=== PATIENT | female | born 1935 | race Caucasian/White ===

== ENCOUNTER 2019-12-19 19:25 | Inpatient (IN) | payer MEDICARE ==
[~2019-12-19] VITALS: Ht 175.3 cm; Wt 57.4 kg
[~2019-12-19 19:25] MED LIST: AMLODIPINE BESYL5 MG PO; ASPIRIN81 M2 PO; CALCIUM600 M1; PENTOXIFYLLINE400 MG PO; Z.0.MULTIVITAMINS1 E; Z.0.PLAVIX75 MG PO; Z.0.XALATAN2.5 ML OP; Z.6.FISH OIL 1,0001 PO; [UNRECOGNIZED DRUG - OTHER] IH
--- OUTSIDE RECORDS SUMMARY | 2019-12-19 19:29 | XMS REPORT ---
Author Author [facility] Organization [facility] Address [address] [place] [address] Phone Unavailable Care Team Providers Care Exercise Rider Name Role Phone Unavailable Unavailable Payers Payer Name Policy Type Policy Number Effective Date Expiration Date S ource Problems This patient has no known problems. Allergies, Adverse Reactions, Alerts Allergy Name Allergy Type Status Severity Reaction(s) Onset Date Inacti ve Date Treating Clinician Comments Source Sulfa (Sulfonamide Antibiotics) DA Active U 2019-08-26 00 :00:00 [facility] aspirin DA Active U 2019-08-26 00:00:00 [facility] nitrofurantoin DA Active U 2019-08-26 00:00:00 [facility] ciprofloxacin DA Active U 2019-08-26 00:00:00 [facility] Medications This patient has no known medications. Procedures This patient has no known procedures. Results Test Description Test Time Test Comments Results Result Comments Source - XR CHEST 1 V 2019-08-26 13:01:00 Patient Name : SUZANNE HINOJOSA Unit No: [id number] EXAMS: CPT CODE: [id number] XR CHEST 1 V 84556 Chest one view AP 08/26/2019 1:00 PM CLINICAL INDICATION: Pneumothorax COMPARISON: None available LOCATION: W1 IMPRESSION: No pneumothorax is evident status post left subclavian dual electrode pacemaker placement. The lungs are emphysematous, with biapical pleural-parenchymal scarring. There is bibasilar linear atelectasis. Cardiomediastinal contours are within normal limits. The central pulmonary vasculature is not engorged. at 1301 Reported and signed by: HOLDEN HARPER M.D. CC: See Cabrera MD Technologist: Michael Waldron Time: DAP (Gy m2): Air Kerma (mGy): Trscr Dt/Tm: 08/26/2019 (1301) by:[email or web address] Printed Date/Time: 08/26/2019 (1304) Name: SUZANNE HINOJOSA [facility] Phys: CODY.Sheryl - See Cabrera [address] : 1935 Age: 84 Sex: F [place] [id number] Loc: [id number] 1 Exam Date: 08/26/2019 Status: REG [facility] [place] PH: FAX: PAGE 1 Signed Report PROTHROMBIN TIME 2019-08-26 06:48:00 Test Item PROTHROMBIN TIME PATIENT (test code = PTP) 11.5 SECONDS 10.3-12.9 N INTERNATIONAL NORMAL RATIO (test code = INR) 0.99 INR UNIT 0.9-1.11 N The INR is useful only for monitoring anticoagulant therapy.It may be unreliable in the initial phase of antigoagulationand in unstable patients. Indication for Anticoagulation Recommended INR 1. Prevention of venous thomboembolism 2.0-3.0in high-risk patients; treatment of venousthrombosis and pulmonary embolism aftera course of heparin; prevention of systemicembolism in a variety of conditions, including atrial fibrillation and prothetic tissue heart valves, 2. Prosthetic mechanical heart valves; 2.5-3.5recurrent systemic embolism. THROMBOPLASTIN TIME [id number] 06:48:00* Test Item Value Reference Range Interpretation Comments THROMBOPLASTIN TIME PARTIAL (test code = PTT) 27.7 SECONDS 26.0-35. 9 N INTERPRETATIVE DATA:Therapeutic range: Unfractionated heparin:47 - 71 seconds Argatroban:1.5 to 3 times the baseline PTT
--- NOTE | 2019-12-19 20:12 | Emergency Department Note ---
History of Present Illnes History of Present Illness Chief Complaint: General Medicine Complaints History of Present Illness This is a 84 year old female arrives to the ED after told by PCP and hemoglobin of 6.5. Patient complaining of generalized malaise and weakness for several days. Recent denies any black stools, denies any bright red blood when wiping, denies any vaginal bleeding and hematuria. Chief Complaint Comment 84 Y/O FEMALE PT AAOX3 PRESENTS TO ED WITH REPORT OF GENERALIZED WEAKNESS 2-3 MONTHS, WORSE THIS WEEK; PTS V/S/S; RESP RATE AND EFFORT ARE WNL, O2 SAT RA 99%; PTS SKIN WARM, DRY, COLOR WNL FOR PT; 20 GAUGE IV CATH PLACED TO PTS LEFT AC, BLOOD OBTAINED FOR LAB ANALYSIS, T&S Onset (how long ago): day(s) (today ) Radiation: non-radiation, back, neck, extremity, abdomen, periumbilical, flank, proximal, distal, other Severity: unable to specify (none) Duration (how long): day(s) (today) Timing of current episode: constant Progression: unchanged Context: recent illness, recent surgery, recent immobilization, recent travel, trauma/injury, new medications, hx of DVT/PE, non-compliance w/ medications, other Relieving factors: none Exacerbating factors: none Treatments prior to arrival: none Past Medical/Family History Physician Review I have reviewed the patient's past medical and family history. Any updates have been documented here. Past Medical History Recent Fever: No Clinical Suspicion of Infectio: No New/Unexplained Change in Ment: No Other Medical History: PAD, VERTIGO, GERD, GLAUCOMA, DEAF IN LEFT EAR Other Surgery: ABLATION, DENTAL IMPLANTS, Social History Smoking Cessation: Never Smoker Alcohol Use: None Any Illegal Drug Use: No TB Exposure/Symptoms: No Physically hurt or threatened: No Family History Family history of heart diseas: No Other Last Tetanus: UTD Any Pre-Existing Lines (PICC,: No Review of Systems Review of Systems Constitutional: malaise, weakness EENTM: no symptoms Cardiovascular: no symptoms Respiratory: no symptoms Gastrointestinal: no symptoms Genitourinary: no symptoms Musculoskeletal: no symptoms Neurological: no symptoms Psychological: no symptoms Endocrine: no symptoms Hematological/Lymphatic: no symptoms Review of other systems All other systems reviewed and negative. Physical Exam Related Data Allergies: Coded Allergies: aspirin (Verified Allergy, 10/16/14) PT REPORTS UPSET STOMACH WITH 325MG ASPIRIN OK TO TAKE 81MG nitrofurantoin (Verified Allergy, 10/16/14) Uncoded Allergies: SULFA (Allergy, 10/16/14) Vital signs reviewed: Yes Physical Exam CONSTITUTIONAL Constitutional: well-developed, well-nourished, cachectic, ill appearing HENT HENT: normocephalic, atraumatic, mucosae dry, nose normal HENT L/R: left ext ear normal, right ext ear normal EYES Eyes: PERRL, conjunctivae normal NECK Neck: ROM normal PULMONARY Pulmonary: effort normal, breath sounds normal CARDIOVASCULAR Cardiovascular: regular rhythm, heart sounds normal, capillary refill normal, normal rate GASTROINTESTINAL Abdominal: soft, nontender, bowel sounds normal GENITOURINARY Genitourinary: exam deferred SKIN Skin: warm, dry MUSCULOSKELETAL Musculoskeletal: ROM normal NEUROLOGICAL Neurological: alert, oriented x 3, no gross motor or sensory deficits PSYCHOLOGICAL Psychological: mood/affect normal, judgement normal Exam - additional comments sent to ed for eval reported low hem reported 6.5 Results Laboratory Lab results reviewed: Yes Laboratory comments Laboratory Tests Test 12/19/19 19:30 White Blood Count 9.42 x10e3/uL (4.8-10.8) Red Blood Count 3.25 x10e6/uL (3.6-5.1) Hemoglobin 6.1 g/dL (12.0-16.0) Hematocrit 22.3 % (34.2-44.1) Mean Corpuscular Volume 68.6 fL (81-99) Mean Corpuscular Hemoglobin 18.8 pg (28-32) Mean Corpuscular Hemoglobin Concent 27.4 g/dL (31-35) Red Cell Distribution Width 19.9 % (11.7-14.4) Platelet Count 238 x10e3/uL (140-360) Neutrophils (%) (Auto) 31.3 % (38.7-80.0) Lymphocytes (%) (Auto) 62.8 % (18.0-39.1) Monocytes (%) (Auto) 4.0 % (4.4-11.3) Eosinophils (%) (Auto) 1.3 % (0.0-6.0) Basophils (%) (Auto) 0.4 % (0.0-1.0) Neutrophils # (Auto) 2.9 (2.1-6.9) Lymphocytes # (Auto) 5.9 (1.0-3.2) Monocytes # (Auto) 0.4 (0.2-0.8) Eosinophils # (Auto) 0.1 (0.0-0.4) Basophils # (Auto) 0.0 (0.0-0.1) Absolute Immature Granulocyte (auto 0.02 x10e3/uL (0-0.1) Sodium Level 139 mmol/L (136-145) Potassium Level 4.0 mmol/L (3.5-5.1) Chloride Level 102 mmol/L (98-107) Carbon Dioxide Level 27 mmol/L (22-29) Anion Gap 14.0 mmol/L (8-16) Blood Urea Nitrogen 32 mg/dL (7-26) Creatinine 1.59 mg/dL (0.57-1.11) Estimat Glomerular Filtration Rate 31 ML/MIN (60-) BUN/Creatinine Ratio 20 (6-25) Glucose Level 97 mg/dL (74-118) Calcium Level 8.8 mg/dL (8.4-10.2) Total Bilirubin 0.6 mg/dL (0.2-1.2) Aspartate Amino Transf (AST/SGOT) 34 IU/L (5-34) Alanine Aminotransferase (ALT/SGPT) 24 IU/L (0-55) Alkaline Phosphatase 56 IU/L (40-150) Creatine Kinase 227 IU/L (29-168) Creatine Kinase MB 7.40 ng/mL (0-5.0) Troponin I 0.064 ng/mL (0-0.300) Total Protein 6.6 g/dL (6.5-8.1) Albumin 3.8 g/dL (3.5-5.0) Globulin 2.8 g/dL (2.3-3.5) Albumin/Globulin Ratio 1.4 (0.8-2.0) Imaging Imaging results reviewed: Yes Procedures 12 Lead ECG Interpretation Prior TUBE OPERATOR tracings: reviewed Rhythm: paced Rate: normal QRS axis: normal ST segments normal: Yes T waves normal: Yes Clinical Impression: normal ECG Critical Care Time Subsequent provider I assumed direction of critical care for this patient from another provider of my specialty. Assessment & Plan Reassessment Reassessment time: 20:09 Reassessment 84y f presented to ed c/o low H&H - Dr Price in eval pt status - lab ordered Assessment & Plan Final Impression: (1) ANEMIA, UNSPECIFIED Assessment & Plan discussed lab results plan of care and need for admit spoke w/ Dr Cam will admit Depart Disposition: ADMITTED Home Meds Reported Medications Pantoprazole Sodium* (PROTONIX) 40 Mg Tablet.dr, 40 MG PO, TAB 12/19/19 Atorvastatin Calcium* (LIPITOR*) 10 Mg Tablet, 10 MG PO HS, TAB 12/19/19 Levothyroxine Sodium (LEVOTHYROXINE SODIUM) 50 Mcg Tablet, 50 MCG PO DAILY, #30 TAB 12/19/19 Torsemide (TORSEMIDE) 10 Mg Tablet, 20 MG DAILY 12/19/19 Rivaroxaban (XARELTO) 10 Mg Tablet, 15 MG DAILY 12/19/19 Glycopyrrolate/Formoterol Fum (Bevespi Aerosphere Inhaler) 10.7 Gm Hfa.aer.ad 12/19/19 Holstein-3 Fatty Acids/Fish Oil (Fish Oil 1,000 Mg Capsule) 1 Each Capsule, 1 EACH PO DAILY 10/17/11 Calcium Carbonate (CALCIUM) 600 Mg Tablet, DAILY 10/17/11 Multivitamin (MULTIVITAMINS) 1 Each Tab.chew, DAILY 10/17/11 Latanoprost (Xalatan) 2.5 Ml Drops, 2.5 ML OP DAILY 10/17/11 Discontinued Reported Medications Pentoxifylline (PENTOXIFYLLINE) 400 Mg Tablet.er, 400 MG PO DAILY, #30 TAB 10/16/14 Amlodipine Besylate (AMLODIPINE BESYLATE) 5 Mg Tablet, 2.5 MG PO DAILY, #30 TAB 10/16/14 Budesonide/Formoterol Fumarate (Symbicort 80-4.5 Mcg Inhaler) 10.2 Gm Hfa.aer.ad, 10.2 GM IH BID 10/17/11 Clopidogrel Bisulfate (Plavix) 75 Mg Tablet, 75 MG PO DAILY 10/17/11 Aspirin (Aspirin) 81 Mg Tablet, 81 MG PO 2 DAILY 10/17/11 JAJA PRICE, December 19, 2019 20:12
[2019-12-19 21:00] VITALS: BP 153/63
[2019-12-19 21:35] LABS: BASOPHILS % 0.4 % (0.0-1.0); EOSINOPHILS # (AUTO) 0.1 (0.0-0.4); EOSINOPHILS % 1.3 % (0.0-6.0); LYMPHOCYTES # (AUTO) 5.9 (1.0-3.2); LYMPHOCYTES % 62.8 % (18.0-39.1); MEAN CORPUSCULAR HEMOGLOBIN 18.8 pg (28-32); MEAN CORPUSCULAR HGB CONC 27.4 g/dL (31-35); MEAN CORPUSCULAR VOLUME 68.6 fL (81-99); MONOCYTES # (AUTO) 0.4 (0.2-0.8); NEUTROPHILS # (AUTO) 2.9 (2.1-6.9); NEUTROPHILS % 31.3 % (38.7-80.0); PLATELET COUNT 238 x10e3/uL (140-360); RED BLOOD COUNT 3.25 x10e6/uL (3.6-5.1); RED CELL DISTRIBUTION WIDTH 19.9 % (11.7-14.4)
[2019-12-19 21:43] LABS: HEMATOCRIT 22.3 % (34.2-44.1); HEMOGLOBIN 6.1 g/dL (12.0-16.0)
[2019-12-19 21:51] LABS: ALBUMIN 3.8 g/dL (3.5-5.0); ALBUMIN/GLOBULIN RATIO 1.4 (0.8-2.0); CALCIUM 8.8 mg/dL (8.4-10.2); CREATININE, SERUM 1.59 mg/dL (0.57-1.11)
[2019-12-19 21:59] LABS: CREATINE KINASE MB 7.4 ng/mL (0-5.0)
--- NOTE | 2019-12-19 22:31 | NUR ---
consent signed for blood transfusion
[2019-12-19] MEDS ORDERED: BEVESPI AEROS10.7 GM (23:01)
[2019-12-19] MEDS ORDERED: XARELTO10 MG (23:01)
[2019-12-19] MEDS ORDERED: TORSEMIDE10 MG (23:05)
[2019-12-19] MEDS ORDERED: PANTOPRAZOLE SO40 MG PO (23:05)
[2019-12-19] MEDS ORDERED: LEVOTHYROXINE50 MCG PO (23:05)
[2019-12-19] MEDS ORDERED: LIPITOR10 MG PO (23:05)
--- OUTSIDE RECORDS SUMMARY | 2019-12-19 23:09 | XMS REPORT ---
Author Author [facility] Organization [facility] Address [address] [place] [address] Phone Unavailable Care Team Providers Care Patch Sander Name Role Phone Unavailable Unavailable Payers Payer Name Policy Type Policy Number Effective Date Expiration Date S ource Problems This patient has no known problems. Allergies, Adverse Reactions, Alerts Allergy Name Allergy Type Status Severity Reaction(s) Onset Date Inacti ve Date Treating Clinician Comments Source Sulfa (Sulfonamide Antibiotics) DA Active U 2019-08-26 00 :00:00 [facility] aspirin DA Active U 2019-08-26 00:00:00 [facility] nitrofurantoin DA Active U 2019-08-26 00:00:00 [facility] ciprofloxacin DA Active U 2019-08-26 00:00:00 [facility] Medications This patient has no known medications. Procedures This patient has no known procedures. Results Test Description Test Time Test Comments Results Result Comments Source - XR CHEST 1 V 2019-08-26 13:01:00 Patient Name : SUZANNE HINOJOSA Unit No: [id number] EXAMS: CPT CODE: [id number] XR CHEST 1 V 12797 Chest one view AP 08/26/2019 1:00 PM [...] Printed Date/Time: 08/26/2019 (1304) Name: SUZANNE HINOJOSA [facility] Phys: CODY.Sheryl - See Cabrera [address] : 1935 Age: 84 Sex: F [place] [id number] Loc: [id number] 1 Exam Date: 08/26/2019 Status: REG [facility] [place] [place] PH: FAX: PAGE 1 Signed Report PROTHROMBIN [...] heart valves; 2.5-3.5recurrent systemic embolism. THROMBOPLASTIN TIME [id number] 06:48:00* Test Item Value Reference Range Interpretation Comments THROMBOPLASTIN TIME PARTIAL (test code = PTT) 27.7 SECONDS 26.0-35. 9 N INTERPRETATIVE DATA:Therapeutic range: Unfractionated heparin:47 - 71 seconds Argatroban:1.5 to 3 times the baseline PTT
--- NOTE | 2019-12-19 23:25 | NUR ---
84 YR OLD FEMALE RECEIVED FROM ER VIA STRETCHER WITH C/O OF DRY SKIN,ITCHING AND TIREDNESS WHICH HAS BEEN GOING ON FOR 3 WEEKS. PT HERE WITH HGB 6.1 DX ANEMIA. HX PVD,CAD,AFIB,PACEMAKER AND PT IS ON XARELTO.LAST DOSE TAKE 12/19/19. PT REPORT SOB WITH EXERTION. TELE ON. LBM 12/19/19. PT VOIDING WITHOUT DIFFICULTY- UP TO BATHROOM. PT DENIES CHEST PAIN. LAB CALLED ABOUT TYPE AND CROSS. BLOOD ORDER PENDING. ER NOTIFIED AND DR TO PUT IN ORDERS. BLOOD BANK TO CALL NURSE WHEN BLOOD READY. BLOOD CONSENT SIGNED IN ER. 20 G SL IN LEFT AC. PT REPORTED LAST APRIL HAD BLOOD IN STOOL.PT HAD COLONOSCOPY UNABLE TO FIND SOURCE OF BLEEDING.PT ORIENTED TO ROOM AND PMC. CALL LIGHT WITHIN REACH. BED IN LOW POSITION.
[2019-12-20] MEDS ORDERED: SODIUM CHLORIDE 0.9% 250ML 250 ML IV ONE
[2019-12-20 00:33] VITALS: BP 153/63
[2019-12-20 00:56] VITALS: BP 153/63
[2019-12-20 05:37] VITALS: BP 139/84
[2019-12-20] MEDS ORDERED: SODIUM CHLORIDE 0.9% 250ML 250 ML ONE ×2 (05:43→10:42)
[2019-12-20 08:20] LABS: BAND NEUTROPHILS % (MANUAL) 2 %; LYMPHOCYTES % (MANUAL) 55 % (19-48); MONOCYTES % (MANUAL) 5 % (3.4-9.0); NEUTROPHILS % (MANUAL) 34 % (40-74)
[2019-12-20 08:22] LABS: HYPOCHROMASIA MARKED; MICROCYTOSIS MARKED; RBC MORPHOLOGY COMMENT ABNORMAL
[2019-12-20 08:23] LABS: PLATELET ESTIMATE ADEQUATE; PLATELET MORPHOLOGY COMMENT NORMAL
[2019-12-20] MEDS ORDERED: LEVOTHYROXINE SODIUM 50 MCG TAB PO SCH (09:00)
[2019-12-20] MEDS ORDERED: LATANOPROST(OPTH) 2.5 ML BTL OP SCH (09:00)
[2019-12-20] MEDS ORDERED: TORSEMIDE 10 MG TAB PO SCH (09:00)
[2019-12-20] MEDS ORDERED: PANTOPRAZOLE SOD 40 MG TABEC PO SCH ×2 (09:00→16:30)
--- NOTE | 2019-12-20 09:55 | NUR ---
RECEIVED REPORT FROM EMMA KATE RN.
[2019-12-20 10:10] VITALS: BP 135/80
--- NOTE | 2019-12-20 11:00 | NUR ---
SECOND UNIT OF BLOOD TRANSFUSION STARTED.
--- NOTE | 2019-12-20 11:15 | NUR ---
PATIENT TOLERATING BLOOD TRANSFUSION WELL. VITAL SIGNS STABLE. SON AT BEDSIDE. CALL LIGHT IN REACH WILL CONTINUE TO MONITOR PATIENT.
[2019-12-20 11:36] VITALS: BP 169/74
--- NOTE | 2019-12-20 12:00 | NUR ---
NOTIFIED DR. REY THAT PT DOES NOT APPEAR TO MEET INPATIENT STATUS. GAVE ORDER FOR OBSERVATION STATUS.
--- NOTE | 2019-12-20 13:45 | NUR ---
SECOND UNIT OF PRBC COMPLETE. VITAL SIGNS STABLE. PATIENT TOLERATED WELL. WILL CONTINUE TO MONITOR PATIENT.
[2019-12-20 14:46] LABS: BASOPHILS % 0.4 % (0.0-1.0); EOSINOPHILS # (AUTO) 0.1 (0.0-0.4); HEMATOCRIT 31.6 % (34.2-44.1); HEMOGLOBIN 9.2 g/dL (12.0-16.0); LYMPHOCYTES # (AUTO) 6.3 (1.0-3.2); MEAN CORPUSCULAR HEMOGLOBIN 21.2 pg (28-32); MEAN CORPUSCULAR HGB CONC 29.1 g/dL (31-35); MONOCYTES # (AUTO) 0.4 (0.2-0.8); NEUTROPHILS # (AUTO) 3.6 (2.1-6.9); NEUTROPHILS % 34.3 % (38.7-80.0); PLATELET COUNT 201 x10e3/uL (140-360); RED BLOOD COUNT 4.33 x10e6/uL (3.6-5.1)
--- NOTE | 2019-12-20 15:46 | NUR ---
NOTIFIED DR. REY OF 9.2 HEMOGLOBIN AFTER 2 UNITS OF PRBC. NEW ORDERS IMPLEMENTED TO DISCHARGE PATIENT.
--- NOTE | 2019-12-20 16:05 | NUR ---
REMOVED PATIENTS IV. CATHETER TIP INTACT AND PRESSURE DRESSING APPLIED.
--- NOTE | 2019-12-20 16:11 | NUR ---
PATIENT DISCHARGED FROM FACILITY. PATIENT GATHERED ALL PERSONAL BELONGINGS, DISCHARGE INSTRUCTIONS AND FOLLOW UP INFORMATION. PATIENT LEFT UNIT IN WHEELCHAIR AND WENT HOME VIA PRIVATE AUTO. NO S/S OF DISTRESS LEAVING FACILITY.
[2019-12-20] MEDS ORDERED: ATORVASTATIN 10 MG TAB PO SCH (21:00)
[2019-12-20 21:31] LABS: HYPOCHROMASIA SLIGHT; RBC MORPHOLOGY COMMENT ABNORMAL
[2019-12-21] MEDS ORDERED: LEVOTHYROXINE SODIUM 50 MCG TAB PO SCH (06:00)
--- NOTE | 2019-12-21 07:36 | Discharge Summary ---
DISCHARGE DIAGNOSIS: Symptomatic anemia. HOSPITAL PROCEDURE: The patient was given transfusion therapy. DISPOSITION: The patient was discharged home, follow up in 1 week with a primary care physician, Dr. Kyle. HISTORY OF PRESENT ILLNESS AND HOSPITAL COURSE: The patient is a lady, who has been having significant fatigue, recently was found on outpatient laboratory data to have a hemoglobin of 6.5, so she was then sent to the emergency room. Her hemoglobin there was . So, she was brought in for transfusion therapy. The patient says in the fall of 2018, she had an endoscope done. Her colonoscopy done that was "unremarkable" per her and she states that due to the COVID issues, she wants to do anything workup michaels as an outpatient, which I agree with. So, the patient was given 2 units of blood with significant improvement of her hemoglobin level up into the acceptable range where she also asymptomatically felt significantly better with her energy level. So, post transfusion, the patient was discharged home. She is to follow up with Dr. Kyle later in the week for followup labs as well as figure out with the outpatient workup course for the anemia is going to be. Please see hospital chart for full details. MD PAULA Sahni/NORTH /[id number]
== END 2019-12-20 16:11 | disposition home or self-care (01) | DRG 812 ==
LOC: ER 19:25 → ERHOLD 23:05 → MED/SURG 23:27
PROVIDERS: ADMIT Internal Medicine; ATTEND Internal Medicine
PROC: 30233N1 Transfusion of Nonautologous Red Blood Cells into Peripheral Vein, Percutaneous Approach (ICD-10-PCS; principal; 2019-12-19)
DX: D64.89 Other specified anemias (principal); Z11.59 Encounter for screening for other viral diseases; I12.9 Hypertensive chronic kidney disease with stage 1 through stage 4 chronic kidney disease, or unspecified chronic kidney disease; N18.3 Chronic kidney disease, stage 3 (moderate); E03.9 Hypothyroidism, unspecified; Z88.2 Allergy status to sulfonamides; E78.5 Hyperlipidemia, unspecified
CPT/HCPCS: 36415; 80053; 82550; 82553; 84484; 85025; 86850; 86900; 86920; 87635; 93005; 99284; J7050; P9016